=== PATIENT | female | born 1960 | race Caucasian/White ===

== ENCOUNTER 2023-04-08 08:59 | Observation (INO) ==
[~2023-04-08 08:59] MED LIST: Buffered Lidocaine 1% SYRIN 1 ml INTRADERM ONE; Lactated Ringers 1000 ml BAG 1,000 ML IV SCH; Metoclopramide 5 MG/ML VIAL (10 mg) IV PRN; Naloxone 0.4 mg VIAL 0.4 mg/ml 1 ml VIAL IV PRN; Ondansetron 4 mg VIAL 2 MG/ML 2 ml VIAL IV PRN; fentaNYL 100 mcg/2 ml 50 MCG/ML VIAL IV PRN
[2023-04-08] MEDS ORDERED: fentaNYL 100 mcg/2 ml 50 MCG/ML VIAL ONE ×2 (10:10→14:59)
[2023-04-08] MEDS ORDERED: Ondansetron 4 mg VIAL 2 MG/ML 2 ml VIAL ONE (10:10)
[2023-04-08] MEDS ORDERED: Lidocaine 2% PF 5 ML VIAL ONE (10:10)
[2023-04-08] MEDS ORDERED: Glycopyrrolate IV 0.2 MG/ML 1 ML VIAL ONE (10:10)
[2023-04-08] MEDS ORDERED: Midazolam 2 mg/2 ml VIAL 1 mg/ml 2 ml VIAL (2 mg) ONE (10:10)
[2023-04-08] MEDS ORDERED: Tranexamic Acid 1 GM/100ML BAG 2,000 MG/200 ML BAG IV ONE (10:16)
[2023-04-08] MEDS ORDERED: ceFAZolin 2 GM in NS PREMIX 2 GM/100 ML BAG IVPB ONE (10:16)
[2023-04-08 10:27] LABS: Rapid COVID-19 Molecular Undetected (Undetected)
[2023-04-08] MEDS ORDERED: ROPIVACAINE 5 MG/ML 30 ML BTL (0.5%) ONE ×2 (11:35→14:20)
[2023-04-08] MEDS ORDERED: Rocuronium 50 mg VIAL 10 mg/ml 5 ml VIAL (50 mg) ONE (11:45)
[2023-04-08] MEDS ORDERED: HYDROmorphone 0.5 MG/0.5 ML SYRINGE ONE (12:30)
[2023-04-08] MEDS ORDERED: KETAMINE HCL 10 MG/ML 20 ml VIAL (200 MG) ONE (12:30)
[2023-04-08] MEDS ORDERED: Dexamethasone IV 4 MG/ML VIAL 1 ml VIAL ONE (12:58)
[2023-04-08] MEDS ORDERED: fentaNYL 250 mcg/5 ml 50 MCG/ML 5 ml VIAL (250 MCG) ONE (13:04)
[2023-04-08] MEDS ORDERED: Morphine 2 MG/ML SYRINGE IV PRN (13:18)
[2023-04-08] MEDS ORDERED: Magnesium Hydroxide LIQ 30 ML UDC PO PRN (13:18)
[2023-04-08] MEDS ORDERED: Ondansetron 4 mg VIAL 2 MG/ML 2 ml VIAL IV PRN (13:18)
[2023-04-08] MEDS ORDERED: Ondansetron ODT 4 mg TAB 4 MG TAB PO PRN (13:18)
[2023-04-08] MEDS ORDERED: Lactulose 30 ml UDC PO PRN (13:18)
[2023-04-08] MEDS ORDERED: ceFAZolin 1 GM ADVAN 1 GM in NS 0.9% 50 ML 50 ML IVPB SCH (14:00)
[2023-04-08] MEDS: Lactated Ringers 1000 ml BAG 1,000 ML IV SCH (16:49)
[2023-04-08] MEDS: ceFAZolin 1 GM ADVAN 1 GM in NS 0.9% 50 ML 50 ML IVPB SCH (21:25)
[2023-04-08] MEDS: Magnesium Hydroxide LIQ 30 ML UDC PO SCH (21:27)
[2023-04-09] MEDS: Lactated Ringers 1000 ml BAG 1,000 ML IV SCH (02:37)
[2023-04-09] MEDS: ceFAZolin 1 GM ADVAN 1 GM in NS 0.9% 50 ML 50 ML IVPB SCH ×2 (05:00→11:32)
[2023-04-09 06:32] LABS: Platelet Count 226 10^3/uL (150-450)
[2023-04-09 06:37] LABS: Hematocrit 30.4 % (35-45); Hemoglobin 10.5 g/dL (11.5-14.3); Mean Platelet Volume 7.1 fL (7.5-11.2)
[2023-04-09 06:49] LABS: Calcium 9.2 mg/dL (8.6-10.3); Creatinine, Serum 0.63 mg/dL (0.51-0.95); Potassium 3.8 mmol/L (3.5-5.0); eGFR CKD-EPI 101.5 (>60)
[2023-04-09] MEDS: Magnesium Hydroxide LIQ 30 ML UDC PO SCH (07:17)
[2023-04-09] MEDS ORDERED: Vitamin THERAPEUTIC TAB PO SCH (09:00)
[2023-04-09 10:48] VITALS: BP 119/71
== END 2023-04-09 13:10 | disposition home or self-care (01) ==
LOC: OR 08:59 → SSU 08:59 → EDSTATUS 15:45
PROVIDERS: ADMIT Physician Assistant; ATTEND Orthopaedic Surgery Adult Reconstructive Orthopaedic Surgery

== ENCOUNTER 2023-12-09 10:35 | Observation (INO) ==
[~2023-12-09 10:35] MED LIST changes: -Buffered Lidocaine 1% SYRIN 1 ml INTRADERM ONE; +Bupivacaine 0.5% PF 10 ML SDV VIAL INJ ONE; +Dexamethasone IV 4 MG/ML VIAL 1 ml VIAL ONE; -Lactated Ringers 1000 ml BAG 1,000 ML IV SCH; +Lidocaine 2% PF 5 ML VIAL ONE; -Metoclopramide 5 MG/ML VIAL (10 mg) IV PRN; +Midazolam 2 mg/2 ml VIAL 1 mg/ml 2 ml VIAL (2 mg) ONE; +Ondansetron 4 mg VIAL 2 MG/ML 2 ml VIAL ONE; +Phenylephrine IV 10 MG/ML 1 ml VIAL ONE; +Propofol 10 mg/ml 100 ML BTL 1,000 MG/100 ML BTL ONE; +fentaNYL 100 mcg/2 ml 50 MCG/ML VIAL ONE
[2023-12-09] MEDS ORDERED: Scopolamine 1 mg/72hr PATCH ONE (10:59)
[2023-12-09] MEDS ORDERED: ceFAZolin 2 GM PREMIX 2 GM/50 ML BAG ONE (11:00)
[2023-12-09 11:24] LABS: Rapid COVID-19 Molecular Undetected (Undetected)
[2023-12-09] MEDS ORDERED: ROPIVACAINE 5 MG/ML 30 ML BTL (0.5%) ONE (12:33)
[2023-12-09] MEDS ORDERED: Rocuronium 50 mg VIAL 10 mg/ml 5 ml VIAL (50 mg) ONE ×2 (12:51→14:34)
[2023-12-09] MEDS ORDERED: HYDROmorphone 0.5 MG/0.5 ML SYRINGE ONE (13:04)
[2023-12-09] MEDS ORDERED: fentaNYL 100 mcg/2 ml 50 MCG/ML VIAL ONE ×3 (13:04→14:35)
[2023-12-09] MEDS ORDERED: Ondansetron 4 mg VIAL 2 MG/ML 2 ml VIAL IV PRN (15:56)
[2023-12-09] MEDS ORDERED: Magnesium Hydroxide LIQ 30 ML UDC PO PRN (15:56)
[2023-12-09] MEDS ORDERED: Ondansetron ODT 4 mg TAB 4 MG TAB PO PRN (15:56)
[2023-12-09] MEDS ORDERED: Morphine 2 MG/ML SYRINGE IV PRN (15:56)
[2023-12-09] MEDS ORDERED: Lactulose 30 ml UDC PO PRN (15:56)
[2023-12-09] MEDS ORDERED: Calcium Carb (TUMS) 500 mg CHEW TAB PO PRN (15:56)
[2023-12-09] MEDS: Lactated Ringers 1000 ml BAG 1,000 ML IV SCH ×2 (17:01→17:31)
[2023-12-09] MEDS: Acetaminophen IV 1 GM/100ML 1,000 MG/100 ML BAG IV ONE (17:30)
[2023-12-09] MEDS: Scopolamine 1 mg/72hr PATCH TRANSDERM ONE (17:31)
[2023-12-09] MEDS: Buffered Lidocaine 1% SYRIN 1 ml INTRADERM ONE (17:31)
[2023-12-09] MEDS: Magnesium Hydroxide LIQ 30 ML UDC PO SCH (21:20)
[2023-12-09] MEDS: ceFAZolin 2 GM PREMIX 2 GM/50 ML BAG IV SCH (21:25)
[2023-12-10 06:15] LABS: Hematocrit 30.7 % (35-45); Hemoglobin 10.3 g/dL (11.5-14.3); Platelet Count 236 10^3/uL (150-450)
[2023-12-10 06:59] LABS: Calcium 8.7 mg/dL (8.6-10.3); Creatinine, Serum 0.76 mg/dL (0.51-0.95); Potassium 3.6 mmol/L (3.5-5.0); eGFR CKD-EPI 89.1 (>60)
[2023-12-10] MEDS: Vitamin THERAPEUTIC TAB PO SCH (08:15)
[2023-12-10 10:42] VITALS: BP 108/68
== END 2023-12-10 12:45 | disposition home or self-care (01) ==
LOC: OR 10:35 → SSU 10:35
PROVIDERS: ADMIT Orthopaedic Surgery Adult Reconstructive Orthopaedic Surgery; ATTEND Orthopaedic Surgery Adult Reconstructive Orthopaedic Surgery